=== PATIENT | female | born 1960 | race Caucasian/White ===

== ENCOUNTER → 2021-06-18 | Outpatient (CLI) | payer OTHER ==
[~2021-06-18] MED LIST: ALL DAY ALLERGY10 M3 PO; HYDROCHLOROTHIA25 M1 PO; HYDROCODON-ACE1 EAC7 PO; LOSARTAN POTASS50 MG PO; MS CONTIN15 MG PO; SINGULAIR 10 MG10 MG PO; TRI-BUFFERED A325 M1 PO; TYLENOL EXTRA500 MG PO; VITAMIN D325 MC2 PO
[2021-06-18 12:11] LABS: HEMATOCRIT 41.5 % (37.0-47.0); HEMOGLOBIN 13.6 gm/dL (12.0-15.0); MCH 29.5 pg (26.0-34.0); MCHC 32.8 g/dL (28.0-37.0); MCV 89.8 fL (80.0-100.0); RBC 4.62 mil/uL (4.20-5.00); RDW 13.3 % (10.5-14.5); WBC 6.9 thou/uL (4.0-11.0)
[2021-06-18 12:22] LABS: ALBUMIN 3.9 g/dL (3.4-5.0); CALCIUM 9.4 mg/dL (8.5-10.1); CREATININE 0.7 mg/dL (0.6-1.0); POTASSIUM 3.9 mmol/L (3.5-5.1)
[2021-06-18 12:24] LABS: INR 0.95; PROTIME 10.4 Seconds (10.5-12.1)
[2021-06-18 12:47] LABS: URINE BILIRUBIN NEGATIVE (Negative); URINE BLOOD NEGATIVE (Negative); URINE CLARITY CLEAR; URINE COLOR YELLOW; URINE GLUCOSE-RANDOM* NEGATIVE (Negative); URINE KETONES NEGATIVE (Negative); URINE LEUKOCYTES-REFLEX NEGATIVE (Negative); URINE NITRITE-REFLEX NEGATIVE (Negative); URINE PROTEIN (DIPSTICK) NEGATIVE (Negative); URINE SPECIFIC GRAVITY 1.015 (1.005-1.035); URINE UROBILINOGEN 0.2 E.U./dl (0.2-1.0)
--- NOTE | 2021-06-18 12:54 | EKG ---
[place] [address] [employer] [facility] [place] [address] ELECTROCARDIOGRAM REPORT Name: JUDITH FOX [id number] Admission: 06/18/21 Attend Phys: Dale Prasad MD Discharge: Date of : 56 Report #: [id number] [facility] Test Date: 2021-06-18 Test Time: 12:03:09 Pat Name: JUDITH FOX Department: Room: Gender: F Network Engineer Administrator: Yogesh MACHUCA : 1960 Requested By: Dale Prasad Order Number: [id number] MD: Дмитрий Cardona Measurements Intervals [place] Rate: 52 P: 37 MN: 144 QRS: -1 QRSD: 110 T: 27 QT: 439 QTc: 409 Interpretive Statements Sinus rhythm Baseline wander in lead(s) V1 No previous ECG available for comparison Electronically Signed On 06-18-2021 12:54:40 [employer] by Дмитрий Cardona [email or web address] <ELECTRONICALLY SIGNED> By: Дмитрий Cardona MD, [facility] 06/18/21 1254 1203 1203 Дмитрий Cardona MD, FACC /EPI
[2021-06-18 23:06] LABS: GLYCOHEMOGLOBIN (HGB A1C) 5.8 % (4.8-5.6)
== END ==
LOC: PAC 05:16
PROVIDERS: Student in an Organized Health Care Education/Training Program; ATTEND Orthopaedic Surgery
DX: Z01.812 Encounter for preprocedural laboratory examination (principal); Z20.822 Contact with and (suspected) exposure to COVID-19

== ENCOUNTER 2021-06-21 06:06 | Observation (INO) | payer OTHER ==
[~2021-06-21] VITALS: Ht 157.5 cm; Wt 104.4 kg
[~2021-06-21 06:06] MED LIST changes: -HYDROCODON-ACE1 EAC7 PO; -MS CONTIN15 MG PO; -TRI-BUFFERED A325 M1 PO
[2021-06-21 06:53] VITALS: BP 125/87
[2021-06-21 14:21] VITALS: BP 120/70
--- NOTE | 2021-06-21 15:11 | NUR ---
ASSUMED CARE OF PT FROM PACU AT 1440 THIS AFTERNOON. PT IS A/OX4. PT WAS OUT OF SURGERY AT 0930 THIS MORNING AND WAS UNABLE TO BE ADMITTED DUE TO NO ROOMS AVAILABLE. POST OP VITALS WERE PERFORMED IN PACU. ASSESSMENTS PERFORMED BY RNDAMON. EDUCATION AND ADMISSION HX PERFORMED AND CHARTED. FALL PRECAUTIONS ARE IN PLACE. CALL LIGHT AND OTHER NEEDS ARE IN REACH. MEDS AND TX GIVEN NEEDED AND SCHEDULED. WILL CONTINUE TO MONITOR AND NOTE ANY CHANGES. PHYS THPY WILL RE-CHECK PT THIS AFTERNOON AND WILL DETERMINE IF PT WILL STAY OVERNIGHT.
[2021-06-21 16:42] VITALS: BP 119/63
[2021-06-21 20:38] VITALS: BP 125/70
--- NOTE | 2021-06-22 04:28 | NUR ---
RECEIVED CARE OF THIS PATIENT AT 1900. PATIENT ALERT AND ORIENTED X4. REMAINS ON BEDREST THIS SHIFT D/T HER KNEE GIVING WAY WHEN SHE IS UP. FELICITA DRESSING ON L KNEE D/I WITH POLAR ICE, TEDS AND SCD'S. IV PATENT RFA WITH FLUIDS INFUSING. SLEPT MOST OF NIGHT. C/O PAIN, MED GIVEN.
[2021-06-22 08:17] VITALS: BP 136/71
[2021-06-22] MEDS ORDERED: HYDROCODON-ACE1 EAC7 PO (08:46)
[2021-06-22] MEDS ORDERED: TRI-BUFFERED A325 M1 PO (08:46)
[2021-06-22] MEDS ORDERED: MS CONTIN15 MG PO (08:47)
--- NOTE | 2021-06-22 10:49 | NUR ---
RE-ASSUMED CARE OF PT AT 0700 THIS MORNING. PT HAD TTL KNEE RE[PLACEMENT LT. PT IS A/OX4 AND READY TO GO HOME. PT WAS CLEARED BY PHYS THPY AND WAITING FOR DISCHARGE TO BE COMPLETED BY SURGEON. ASSESSMENTS NOTED IN CHART AND OTHERWISE UNREMARKABLE. CALL LIGHT AND OTHER NEEDS ARE IN REACH. FALL PRECAUTIONS ARE IN PLACE. MEDS AND TX GIVEN NEEDED AND SCHEDULED. WILL CONTINUE TO MONITOR AND NOTE ANY CHANGES. PT DISCHARGE COMPLETE AND SIGNED BY PT. FELICITA AND DISCHARGE INFO TAKEN WITH PT.
[2021-06-22 10:54] VITALS: BP 100/59
--- NOTE | 2021-07-04 15:56 | O ---
[facility] [place] [address] OPERATIVE REPORT Name: JUDITH FOX Room #: 447-P [facility] Gonzalo Stevens#: [id number] Admission: 06/21/21 Attend Phys: Dale Prasad MD Discharge: 06/22/21 Date of : 56 Report #: [id number] THIS REPORT FOR: cc: FAM - Family physician unknown FAM - Family physician unknown Dale Prasad MD ~ DATE OF SERVICE: 06/21/2021 PREOPERATIVE DIAGNOSIS: Left knee osteoarthritis. POSTOPERATIVE DIAGNOSIS: Left knee osteoarthritis. PROCEDURE: Left total knee arthroplasty using Navio robotic assistance. SURGEON: Dale Prasad MD ANESTHESIA: LMA with adductor canal block. IMPLANTS: A [employer] size 4 Journey II BCS Oxinium femur, size 3 tibia, size 10 constrained polyethylene and size 32 patella. TOURNIQUET TIME: 59 minutes. ESTIMATED BLOOD LOSS: 25 mL. COMPLICATIONS: None. SPECIMENS: None. CONDITION UPON LEAVING THE OR: Stable. INDICATIONS FOR PROCEDURE: The patient is a 60-year-old female with severe left knee osteoarthritis. She had failed conservative measures for this and after discussion with her, she elected for left total knee arthroplasty. DESCRIPTION OF PROCEDURE: Risks, benefits, alternatives, complications were discussed in detail with the patient, including but not limited to risk of anesthesia, risk of damage to nerves, arteries, blood vessels, risk for infection, bleeding, risk for continued knee pain, need for reoperation. Informed consent was obtained from the patient. The left knee was appropriately marked in the preoperative holding area. IV Ancef was given for preoperative antibiotics. Adductor canal block was placed by Anesthesia. She was brought to the operating room and placed in the supine position on the operating room table. LMA anesthesia was induced without complication. Tourniquet was placed on the left thigh. Left lower extremity was prepped and draped in normal sterile fashion. Timeout was performed, properly identifying the patient and [address] [address] OPERATIVE REPORT Name: JUDITH FOX Room #: 447-P [facility] Gonzalo Stevens#: [id number] Admission: 06/21/21 Attend Phys: Dale Prasad MD Discharge: 06/22/21 Date of : 56 Report #: [id number] procedure as well as the instrumentation and implants. All in the operating room in agreement. Left lower extremity was exsanguinated, tourniquet was inflated. Tourniquet time was 59 minutes. Standard midline approach to the knee was made with 10 blade through the skin. Dissection was taken down sharply to the fascia and deep flaps were developed medially and laterally. Fresh 10 blade was used to make a medial parapatellar arthrotomy and the knee was inspected. There was moderate to severe tricompartmental osteoarthritis. ACL and PCL were removed sharply. Reference pins were placed in the femur and the tibia. The knee was digitally mapped using the [employer] robotic system. Intraoperative plan was made. We sized the size 4 femur, size 3 tibia and a 10 spacer. After acceptance of the intraoperative plan, the distal femoral cut was made with Navio bur. Distal femoral cutting block was pinned in place and chamfer cuts were made. Attention was turned to the tibia. Remainder of the menisci removed with Bovie cautery. Tibial resection guide was pinned in place using Navio for placement. Tibial resection was made. Flexion and extension gaps were checked and found to have good balance in flexion and extension both medially and laterally. Tibia was sized, found to be a size 3. Size 3 tibial trial was placed, pinned and punched. Size 4 femoral trial was placed and box cut was made. This was then trialed with a size 10 polyethylene. The size 10 polyethylene demonstrated 1-2 mm laxity medially and laterally and deep flexion, there was up to 3 mm laterally. It was felt we can make up for this with a constrained implant. A 9 mm of bone was resected from the posterior surface of the patella and a size 32 patellar trial button was placed. Knee was taken through range of motion, found to be stable, found to have good patellar tracking. Trial components were removed. Bone ends were thoroughly irrigated with normal saline. A final size 3 tibia, size 4 Oxinium Journey II BCS femur and a size 32 patella were cemented in place using standard cementation techniques. While the cement cured, a periarticular injection consisting of morphine, ropivacaine, epinephrine, and Toradol was placed around the knee joint capsule. After the cement cured, the tourniquet was deflated and hemostasis was obtained with Bovie cautery. Final size 10 constrained polyethylene was placed. A gram of vancomycin was placed deep in the joint. Fascia was closed with 0 Vicryl. Skin was closed with 2-0 Vicryl, staple and a FELICITA dressing was applied. The patient tolerated this procedure well and went to recovery room under care of Anesthesia postoperatively. <ELECTRONICALLY SIGNED> By: Dale Prasad MD 07/04/21 1556 [id number] 1135 Dale Prasad MD /nt
== END 2021-06-22 11:37 | disposition home or self-care (01) ==
LOC: OR → 4S 14:32 → OR 14:44 → 4S 17:53 → OR 19:04 → 4S 06-22 11:37
PROVIDERS: ADMIT Orthopaedic Surgery; ATTEND Orthopaedic Surgery
DX: M17.12 Unilateral primary osteoarthritis, left knee (principal); Z20.822 Contact with and (suspected) exposure to COVID-19; Z23 Encounter for immunization; Z88.1 Allergy status to other antibiotic agents; Z88.8 Allergy status to other drugs, medicaments and biological substances
CPT/HCPCS: 27447; 0055T; 50010; 50101; 50415; 51412; 53365; 56527; 56528; 57095; 57103; 57110; 57127; 57180; 59024; 62110; 62900; 64039; 70005